=== PATIENT | female | born 1975 | race Caucasian/White ===

== ENCOUNTER → 2016-10-13 | Outpatient (CLI) | payer BC ==
[~2016-10-13] MED LIST: ACET-1311 PO; AMIT10TA6 PO; FAMO40TA6 PO; LAMO1TAB21 PO; LEVE100021 PO; LISD50CA4 PO; MILN100T PO; MULT-513 PO; NRN100 PO; ONDA4TAB46 PO; PHEN-876 PO; PHEN95TA14 PO; PROM25TA16 PO; PROM25TA9 PO; PRT/40 PO; SYN50 PO; ZONI100C2 PO
[2016-10-13 14:46] LABS: MANUAL MICROSCOPIC REQUIRED? YES; REVIEW REQ? NO
[2016-10-13 14:47] LABS: URINE APPEARANCE CLOUDY (CLEAR); URINE COLOR ORANGE
[2016-10-13 14:48] LABS: SULFASALICYLIC ACID POS (NEG)
[2016-10-13 14:52] LABS: URINE BACTERIA 4+ (NEG); URINE RBC >30 /hpf (0-4); URINE WBC >30 /hpf (0-5)
== END | disposition home or self-care (01) ==
LOC: C.LAB1850 14:14
PROVIDERS: ATTEND Obstetrics & Gynecology
DX: R39.9 Unspecified symptoms and signs involving the genitourinary system (principal)

== ENCOUNTER 2016-10-15 16:37 | Emergency (ER) | payer BC ==
[~2016-10-15] VITALS: Ht 165.1 cm; Wt 85.5 kg
[2016-10-15 16:49] VITALS: BP 131/86; PULSE 96; TEMP 36.7; O2SAT 99; Ht 165.1 cm; Wt 85.5 kg
--- NOTE | 2016-10-16 00:48 | EMERGENCY ROOM VISIT NOTE ---
ED Visit Note First contact with patient: 17:00 Chief Complaint: Urinary tract infection, fevers, chills, bladder pain and nausea. History of Present Illness: Ms. Hussein is a 40-year-old white female who ambulates into the ED complaining of a urinary tract infection with fevers, chills, bladder pain and nausea. Patient reports that she was seen by Dr. Cardoso approximately 2 days ago and was diagnosed with a urinary tract infection. She reports she received the culture results today and was told that she had Escherichia coli in her urine. Additionally she reports that she was placed on ciprofloxacin for her urinary tract infection and was told to come to the emergency department for uncontrolled pain and fevers. Additionally she does report at the time of office visit at Dr. Cardoso's a full gynecological examination was performed and was found to be normal. Patient reports that since her diagnosis she has been having increasing urinary pain. She describes her discomfort as peeing razor blades". She rates her discomfort 7/10. Her pain is nonradiating. Her pain slightly decreases with urination and increases during urination. She has been using Aleve and Tylenol without relief of her discomfort. She does report that she was encouraged to use [id number] ASO by Dr. Cardoso. Associated with her pain she reports that she has mild right flank pain and she has been having ongoing fevers of 101-102F. She has been continuously nauseated and has been having multiple episodes of vomiting. Patient also reports that she is feeling dehydrated because of all her vomiting. She denies skin eruptions, skin color changes, upper respiratory tract symptoms , cough, wheezing, chest pain, bloody vomitus, diarrhea, constipation, gross hematuria, extremity weakness/numbness/tingling. Review of Systems: As noted above in history of present illness. All body systems were reviewed and found to be negative as noted above. Past Medical History: Acute renal failure, seizure disorder, esophageal reflux, hypothyroidism, anemia, chronic back pain, chronic abdominal pain, anxiety, depression, narcotic overdose, and status post gastric bypass and cholecystectomy. Current Medications: Medications Dose Route/Sig Max Daily Dose Days Date Category Dose Instructions Phenergan (Promethazine HCl) 25 Mg Tab 25-50 Mg PO Q6H PRN 07/21/16 Rx Pyridium (Phenazopyridine HCl) 200 Mg Tab 200 Mg PO TID PRN 07/21/16 Rx Tylenol (Acetaminophen) 325 Mg Tab 1,000 Mg PO Q6 07/21/16 Reported Gabapentin 100 Mg Cap 100 Mg PO TID 07/21/16 Reported Azo Tabs (Phenazopyridine Hcl) 95 Mg Tab 1 Tab PO TID 07/21/16 Reported Promethazine HCl 25 Mg Tab 25 Mg PO Q6 07/21/16 Reported Vyvanse (Lisdexamfetamine Dimesylate) 50 Mg Cap 50 Mg PO DAILY 07/21/16 Reported caused difficulty sleeping so stoped Lamotrigine 100 Mg Tab 100 Mg PO QAM 07/21/16 Reported Zonegran (Zonisamide) 100 Mg Cap 100 Mg PO DAILY 07/21/16 Reported Synthroid (Levothyroxine Sodium) 50 Mcg Tab 50 Mcg PO DAILY 07/21/16 Reported Levetiracetam 1,000 Mg Tab 1,000 Mg PO BID 07/21/16 Reported Zofran (Ondansetron HCl) 4 Mg Tab 4 Mg PO QD PRN 12/14/15 Reported Pepcid (Famotidine) 40 Mg Tab 40 Mg PO QD 12/14/15 Reported Savella (Milnacipran Hcl) 100 Mg Tab 100 Mg PO BID 06/24/15 Reported Elavil (Amitriptyline Hcl) 10 Mg Tab 40 Mg PO HS 06/24/15 Reported Mvi With Minerals (Multivitamins/Minerals) Tab 1 Tab PO DAILY 05/15/15 Reported Pantoprazole Sodium (Pantoprazole) 40 Mg Tab 40 Mg PO BID 05/22/14 Reported Allergies to Medications: Acetaminophen, NSAIDs, tramadol. Social History: Patient is currently employed; she feels safe in her home environment; she denies tobacco and alcohol use. Physical Examination: Vital Signs: Date Time Temp Pulse Resp B/P Pulse Ox O2 Delivery O2 Flow Rate FiO2 10/15/16 16:49 36.7 96 18 131/86 99 Room Air GENERAL: 40-year-old female in moderate distress due to pain, nontoxic-appearing , afebrile and hemodynamically stable. Patient is very anxious and tearful. NEUROLOGICAL: Awake, alert and oriented to person, place and time. Answering questions appropriately and following commands. Normal gait. Good hand eye coordination. No focal motor sensory deficits. SKIN: Warm, dry and pink. No soft tissue eruptions or trauma noted. HEENT: Atraumatic and normocephalic. PERRLA. Sclera white and conjunctiva pink. No drainage from naris. Oral cavity moist and pink. Pharynx is nonerythematous or edematous. Speech normal. No lymphadenopathy. Trachea midline. No jugular venous distention. BACK: No tenderness over the bony spine. Mild right sided CVA tenderness. THORAX: Lungs sounds are clear to auscultation and equal bilaterally with symmetrical chest wall. No wheezing, rales or rhonchi. HEART: Regular rate and rhythm. No gallops, rubs or murmurs are appreciated. ABDOMEN: Flat and soft with [id number] diffuse tenderness throughout the abdomen with slight prominence in the right lower quadrant. Positive bowel sounds in all quadrants. No guarding, rigidity or organomegaly. EXTREMITIES: Moves all extremities well on command and with purpose. All distal neurovascular statuses are intact and equal bilaterally. ED Course: Patient is assessed as noted above. I have a lengthy conversation with the patient; she is currently on a no narcotic policy in the emergency department from her previous narcotic abuse and overdose. 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 She goes on to insisted that she receive narcotics today and if I was not going to able to give her narcotics that she would leave and go to another hospital. I reviewed the case with Dr. Amos and it was felt because of her previous history and her insistence on narcotics tonight that we could offer other pain medications but not narcotics. Additionally I reviewed the state database and it is reported that she has received 6 narcotic prescriptions from 2 different providers since the beginning of the year. Her last prescription was 11 days ago for oxycodone 15 mg 4 times a day and fentanyl patches. I did go and re-speak to the patient and reported we would be more than willing to evaluate her symptoms but would not be able to give her any narcotics for her pain tonight. She then requested to be discharged and reported that she would go to [facility] for further evaluation and care. Patient was discharged at her request. Clinical Impression: Urinary tract infection. Possible pyelonephritis. Disposition: Patient discharged to go to [facility] for further evaluation and care. Plan: Patient was encouraged to go to [facility]. Patient was encouraged return to the ED as needed for worsening symptoms or any new/concerning symptoms.
== END 2016-10-15 17:41 | disposition home or self-care (01) ==
LOC: C.EDB 16:38 → C.EDA 17:41
DX: N39.0 Urinary tract infection, site not specified (principal); G40.909 Epilepsy, unspecified, not intractable, without status epilepticus; E03.9 Hypothyroidism, unspecified; K21.9 Gastro-esophageal reflux disease without esophagitis; D64.9 Anemia, unspecified; F32.9 Major depressive disorder, single episode, unspecified; F41.9 Anxiety disorder, unspecified; G89.29 Other chronic pain; Z98.84 Bariatric surgery status; Z90.49 Acquired absence of other specified parts of digestive tract; Z79.899 Other long term (current) drug therapy; Z88.6 Allergy status to analgesic agent; Z88.8 Allergy status to other drugs, medicaments and biological substances

== ENCOUNTER → 2016-11-21 | Outpatient (CLI) | payer BC ==
[~2016-11-21] MED LIST changes: +PANT40TA2 PO; -PRT/40 PO
== END | disposition home or self-care (01) ==
LOC: C.PAPS 10:06
PROVIDERS: ATTEND Obstetrics & Gynecology
DX: N83.209 Unspecified ovarian cyst, unspecified side (principal)

== ENCOUNTER → 2017-02-12 | Outpatient (CLI) | payer BC ==
[~2017-02-12] MED LIST changes: -PANT40TA2 PO; -PHEN-876 PO; -PROM25TA9 PO; +PRT/40 PO
[2017-02-12 14:00] LABS: URINE APPEARANCE CLEAR (CLEAR); URINE BILIRUBIN NEG (NEG); URINE COLOR DK YELLOW; URINE EPITHELIAL CELL AUTO >30 /lpf (0-5); URINE NITRITE NEG (NEG); URINE SPECIFIC GRAVITY 1.024 (1.000-1.030); UROBILINOGEN NEG (NEG)
[2017-02-12 14:04] LABS: MANUAL MICROSCOPIC REQUIRED? NO; REVIEW REQ? YES
== END | disposition home or self-care (01) ==
LOC: C.LABSPEC 13:25
PROVIDERS: ATTEND Physician Assistant
DX: R30.0 Dysuria (principal); N89.8 Other specified noninflammatory disorders of vagina

== ENCOUNTER → 2017-03-06 | Outpatient (CLI) | payer BC | END | disposition home or self-care (01) | LOC: C.PATHSPEC 14:32 | PROVIDERS: ATTEND Urology | DX: N39.0 Urinary tract infection, site not specified (principal); R31.29 Other microscopic hematuria ==

== ENCOUNTER → 2017-06-17 | Outpatient (CLI) | payer OTHER ==
[~2017-06-17] MED LIST changes: +PANT40TA2 PO; -PRT/40 PO
== END | disposition home or self-care (01) ==
LOC: C.LAB 16:08
PROVIDERS: ATTEND Nurse Practitioner Adult Health
DX: R39.9 Unspecified symptoms and signs involving the genitourinary system (principal); N39.0 Urinary tract infection, site not specified

== ENCOUNTER → 2017-12-14 | Outpatient (CLI) | payer OTHER | END | disposition home or self-care (01) | LOC: C.PAPS 13:00 | PROVIDERS: ATTEND Obstetrics & Gynecology | DX: Z12.4 Encounter for screening for malignant neoplasm of cervix (principal) ==